=== PATIENT | female | born 1985 | race Native Hawaiian/Other Pacific Islander ===

== ENCOUNTER 2016-12-11 21:40 | Emergency (ER) | payer OTHER ==
[~2016-12-11] VITALS: Ht 170.2 cm; Wt 78.5 kg
[2016-12-11 23:15] LABS: PLATELET COUNT 304 K/uL (152-353)
== END 2016-12-12 00:05 | disposition home or self-care (01) ==
LOC: ED 21:40
DX: M54.32 Sciatica, left side (principal); N30.91 Cystitis, unspecified with hematuria
CPT/HCPCS: 36415; 81000; 85027; 99283

== ENCOUNTER 2017-09-08 11:45 | Emergency (ER) | payer OTHER ==
[~2017-09-08] VITALS: Ht 170.2 cm; Wt 79.5 kg
== END 2017-09-08 13:10 | disposition home or self-care (01) ==
LOC: ED 11:45
PROC: 2W3RX1Z Immobilization of Left Lower Leg using Splint (ICD-10-PCS; principal; 2017-09-08)
DX: S82.302A Unspecified fracture of lower end of left tibia, initial encounter for closed fracture (principal); S93.402A Sprain of unspecified ligament of left ankle, initial encounter; X50.1XXA Overexertion from prolonged static or awkward postures, initial encounter; Y92.009 Unspecified place in unspecified non-institutional (private) residence as the place of occurrence of the external cause
CPT/HCPCS: 96372; 99283; J1885